=== PATIENT | male | born 1945 | race Caucasian/White ===

== ENCOUNTER 2024-05-26 15:08 | Emergency (ER) | payer MEDICARE, OTHER, SELFPAY ==
[2024-05-26 15:26] VITALS: BP 148/107; PULSE 88; RESP 18; TEMP 36.7; O2SAT 91; BMI 30.7
--- NOTE | 2024-05-26 17:02 | ED_ITS ---
HPI - General Adult General Date Seen: 05/26/24 Chief complaint: Hypertension Stated complaint: high blood pressure Time Seen by Provider: 05/26/24 16:14 Source: patient History of Present Illness HPI narrative: Patient is an 79-year-old male who is here with his for evaluation of elevated blood pressure and possible shingles. He is a retired pharmacist. They split their time between [place] and [facility], they arrived here in [facility] about a week ago. He notes that his blood pressure readings have been elevated in the past few days, he says that he attributed this initially to the fact that things have been little chaotic and busy, he has been more stressed than he normally would be at home. He has not been sleeping well which he says is been a problem for while and he would like to talk about that as well. In addition, he has had some tingling type pain in his scalp and forehead and today noticed a rash, which he suspects may be shingles. Of note, aside from the tingling type pain in his head he has not had headache, he denies any chest pain. He takes lisinopril 20 mg b.i.d., had been previously on amlodipine but says he has not taken that for about a year. When he noted his blood pressure readings were elevated he did restart amlodipine at 2.5 mg daily, but has not seen much change from that. Related Data Home Medications ?Medication ?Instructions ?Recorded ?Confirmed amlodipine 2.5 mg tablet 2.5 mg PO DAILY 05/26/24 05/26/24 atorvastatin 20 mg tablet 20 mg PO DAILY 05/26/24 05/26/24 hydrochlorothiazide 12.5 mg tablet 12.5 mg PO DAILY 05/26/24 05/26/24 lisinopril 20 mg tablet 20 mg PO BID 05/26/24 05/26/24 meloxicam 7.5 mg tablet 7.5 mg PO DAILY 05/26/24 05/26/24 potassium chloride 20 mEq oral 10 meq PO DAILY 05/26/24 05/26/24 packet Previous Rx's ?Medication ?Instructions ?Recorded trazodone 50 mg tablet 50 mg PO QHS PRN #14 tabs 05/26/24 valacyclovir 1 gram tablet 1,000 mg PO TID #21 tabs 05/26/24 (Valtrex) Review of Systems Status of ROS: Reports: 10 or more systems reviewed and unremarkable except as noted in History and below Exam Narrative: Exam Narrative: Vital signs reviewed In general, alert, nontoxic elderly male. He is pleasant, conversant. Head: Normocephalic, atraumatic. Eyes: Sclera clear. Pupils equal and reactive. ENT: Mucous membranes moist. Neck: Supple without adenopathy. Heart: Regular rate and rhythm without murmur. Lungs: Clear. No increased work of breathing, crackles or wheezes. Abdomen: Soft, nontender to palpation. Extremities: Well perfused, pulses intact. No significant edema. Neurologic: Alert, conversant. Speech fluent, face symmetric. Moves all extremities equally. Skin: Warm, dry well perfused. On the forehead, he has a slightly erythematous, blistered rash consistent with shingles. Affect: Normal. Const: Vital Signs, click to edit/add: Vital Signs - 24 hr 05/26/24 15:26 Temperature 98.0 F Pulse Rate [Pulse Oximeter] 88 Respiratory Rate 18 Blood Pressure [Ri ght Upper Arm] 148/107 H Pulse Oximetry 91 Oxygen Delivery Me thod Room Air Documenting provider has reviewed patient's vital signs: yes Course Course ED Course: Had a lengthy conversation about all this with him. I have encouraged him not to check his blood pressure as frequently as I do not think it is helpful for him. We decided to continue the lisinopril at 20 b.i.d. and add amlodipine 5 mg nightly. Discussed that elevated blood pressure is probably multifactorial. I recommended that he hold off on checking his blood pressure at all over the next few days, okay to check it at that point once or twice just to see where he is at. If he notices that as his schedule settles down and this shingles dissipates he is still seeing elevated readings, would recommend discussing further with his primary doctor. With regard to the shingles, I am prescribing valacyclovir 1 g t.i.d. for 7 days. He is not having significant pain at this time. We discussed gabapentin as an option if he becomes more symptomatic. Regarding sleep, his takes trazodone and he is interested in trying that. We did discuss trying melatonin 1st, but I prescribed trazodone 50 mg 14 tablets if he does not find melatonin helpful. Discuss further with primary care if needed. Vital Signs Vital signs: Initial Vital Signs Temperature 98.0 F 05/26/24 15:26 Temperature Source Temporal Artery Scan 05/26/24 15:26 Pulse Rate 88 05/26/24 15:26 Respiratory Rate 18 05/26/24 15:26 Blood Pressure 148/107 H 05/26/24 15:26 Blood Pressure Mean 120 H 05/26/24 15:26 Blood Pressure Position Sitting 05/26/24 15:26 Pulse Oximetry 91 05/26/24 15:26 Oxygen Delivery Method Room Air 05/26/24 15:26 Vital Signs Temperature 98.0 F 05/26/24 15:26 Pulse Rate 88 05/26/24 15:26 Respiratory Rate 18 05/26/24 15:26 Blood Pressure 148/107 H 05/26/24 15:26 Pulse Oximetry 91 05/26/24 15:26 Oxygen Delivery Method Room Air 05/26/24 15:26 Temperature 98.0 F 05/26/24 15:26 Pulse Rate 88 05/26/24 15:26 Respiratory Rate 18 05/26/24 15:26 Blood Pressure 148/107 H 05/26/24 15:26 Pulse Oximetry 91 05/26/24 15:26 Oxygen Delivery Method Room Air 05/26/24 15:26 Discharge Plan Discharge Clinical Impression: Shingles, Elevated blood pressure reading with diagnosis of hypertension Patient Disposition: Home, Self-Care Condition: Stable Instructions: Shingles (ED), Chronic Hypertension (ED) Additional Instructions: As discussed, take your lisinopril 20 mg twice daily, amlodipine 5 mg nightly. I would recommend not checking your blood pressure for a few days, okay to check at that point to see where you are at. Please discuss with your primary doctor if you are continuing to have difficulty controlling her blood pressure. With regard your shingles, I prescribed valacyclovir. Take as directed. Tylenol if needed for pain. With regard to sleep, I would recommend trying melatonin, perhaps about 5 mg an hour before you plan to go to bed. I prescribed trazodone if needed. Discussed further with your primary doctor if needed. Return to the ER at any time for severe symptoms of headache, chest pain, neurologic changes. Prescriptions: New valacyclovir [Valtrex] 1 gram tablet 1,000 mg PO TID Qty: 21 0RF trazodone 50 mg tablet 50 mg PO QHS PRNQty: 14 0RF No Action lisinopril 20 mg tablet 20 mg PO BID atorvastatin 20 mg tablet 20 mg PO DAILY amlodipine 2.5 mg tablet 2.5 mg PO DAILY hydrochlorothiazide 12.5 mg tablet 12.5 mg PO DAILY potassium chloride 20 mEq packet 10 meq PO DAILY meloxicam 7.5 mg tablet 7.5 mg PO DAILY Stand Alone Forms: MyHealth Info Instructions
== END 2024-05-26 17:25 | disposition home or self-care (01) ==
LOC: ED 17:00
PROVIDERS: Emergency Provider Emergency Medicine
DX: B02.9 Zoster without complications (principal); R03.0 Elevated blood-pressure reading, without diagnosis of hypertension
CPT/HCPCS: 99283; 99284